=== PATIENT | male | born 1950 | race Caucasian/White ===

== ENCOUNTER 2017-01-12 20:25 | Emergency (ER) | payer MEDICARE, MEDICAID ==
[~2017-01-12] VITALS: Ht 167.6 cm; Wt 100.0 kg
[~2017-01-12 20:25] MED LIST: ASPIRIN CHEWABL81 MG PO; ATIVAN0.5 MG PO; B COMPLE1 PO; CELEXA20 M1 PO; CHROMIUM PICOLINATE PO; DOXYCYCL HYC100 MG PO; E 400 BLEND400 UNIT PO; FENOFIBRATE145 MG PO; FISH OIL OR; FISH OIL1000 M2 PO; GLIPIZIDE10 MG PO; GLIPIZIDE5 MG PO; HALOPERIDOL0.5 MG PO; JANUVIA100 MG PO; KEFLEX500 MG PO; LISINOP/HCTZ1 TAB PO; LYRICA50 MG PO; METFORMIN500 MG PO; METHADONE10 M1 PO; MIRTAZAPINE ODT15 MG PO; MORPHINE SULFAT30 M1 PO; MORPHINE SULFAT30 M2 PO; NEURONTIN400 MG PO; NEXIUM20 M1 PO; NOVOLIN 70/30 SC; OMEPRAZOLE20 MG PO; ORAMORPH SR15 MG PO; PENTOXIFYLLI400 M1 PO; PENTOXIFYLLI400 MG PO; PLAVIX75 MG PO; PRILOSEC40 MG PO; SIMVASTATIN40 MG OR; TENIVAC1 ML IM; TRESIBA FL100 UNIT/M SC; TRICOR145 MG PO; [UNRECOGNIZED DRUG - OTHER] OR
[2017-01-12 22:05] VITALS: BP 156/64
== END 2017-01-12 22:13 | disposition home or self-care (01) ==
LOC: ED 20:25
DX: I10 Essential (primary) hypertension (principal); I25.10 Atherosclerotic heart disease of native coronary artery without angina pectoris; E78.5 Hyperlipidemia, unspecified; G89.29 Other chronic pain; M54.5 Low back pain; E11.42 Type 2 diabetes mellitus with diabetic polyneuropathy; E11.51 Type 2 diabetes mellitus with diabetic peripheral angiopathy without gangrene; F32.9 Major depressive disorder, single episode, unspecified; F41.0 Panic disorder [episodic paroxysmal anxiety]; K21.9 Gastro-esophageal reflux disease without esophagitis; Z79.4 Long term (current) use of insulin

== ENCOUNTER 2017-02-07 17:50 | Emergency (ER) | payer MEDICARE, MEDICAID ==
[~2017-02-07] VITALS: Ht 167.6 cm; Wt 96.6 kg
[2017-02-07 19:35] VITALS: BP 130/63
== END 2017-02-07 19:35 | disposition home or self-care (01) ==
LOC: ED 17:50
DX: I10 Essential (primary) hypertension (principal)

== ENCOUNTER 2017-02-09 09:29 | Emergency (ER) | payer MEDICARE, MEDICAID | END 2017-02-09 10:00 | disposition left against medical advice (07) | LOC: ED 09:29 → LWOBS 10:00 | DX: Z91.19 Patient's noncompliance with other medical treatment and regimen (principal) ==

== ENCOUNTER 2017-02-26 13:51 | Emergency (ER) | payer MEDICARE, MEDICAID ==
[~2017-02-26] VITALS: Ht 167.6 cm; Wt 96.0 kg
[2017-02-26] MEDS ORDERED: LOSARTAN POTASS50 MG PO (14:03)
[2017-02-26] MEDS ORDERED: LASIX 40 MG40 MG/TAB PO (14:04)
[2017-02-26] MEDS ORDERED: TRULICITY0.75 MG/0. SC (14:10)
[2017-02-26 15:42] LABS: HEMATOCRIT 45.8 % (39.0-50.0); IMMATURE GRANULOCYTES 0.5 % (0.0-1.0); MEAN CELL VOLUME 95.6 fL CALC (80.0-100.0); MEAN CORPUSCULAR HGB 31.3 pG CALC (26.0-32.0); MEAN CORPUSCULAR HGB CONC 32.8 g/L CALC (32.0-36.0); NEUT# 8.39 thou/uL (1.82-7.42); RED BLOOD COUNT 4.79 mill/uL (4.70-6.10)
[2017-02-26 15:46] LABS: URINE BILIRUBIN - DIPSTICK NEGATIVE (NEGATIVE); URINE BLOOD DIPSTICK NEGATIVE (NEGATIVE); URINE CLARITY CLEAR; URINE COLOR YELLOW; URINE GLUCOSE - DIPSTICK >=1000 mg/dL (NEGATIVE); URINE KETONE NEGATIVE (NEGATIVE); URINE LEUK ESTERASE NEGATIVE (NEGATIVE); URINE NITRITE - DIPSTICK NEGATIVE (Negative); URINE PH 5.5 (4.5-8.0); URINE PROTEIN - DIPSTICK NEGATIVE (NEG-TRACE); URINE UROBILINOGEN - DIPSTICK 0.2 E.U./dL (0.2)
[2017-02-26 16:01] LABS: ALBUMIN 4.8 g/dL (3.2-5.0); ALKALINE PHOSPHATASE 114 u/l (38-126); ANION GAP 20 (6-22 (CALC)); BILIRUBIN, TOTAL 0.6 mg/dL (0.0-1.4); BUN 14 mg/dL (8-23); BUN/CREATININE RATIO 14 (12-20 (CALC)); CALCIUM 9.4 mg/dL (8.4-10.2); CARBON DIOXIDE 28 mmol/l (22-30); CHLORIDE 95 mmol/l (95-108); GFR > 60 ML/MIN (>=60 (CALC)); GFR FOR AFR.AMER. > 60 ML/MIN (>=60 (CALC)); GLUCOSE 317 mg/dL (82-115); POTASSIUM 4.4 mmol/l (3.5-5.1); SGOT/AST 25 u/l (19-48); SGPT/ALT 45 u/l (11-66); SODIUM 139 mmol/l (137-146); TOTAL PROTEIN 7.7 g/dL (6.3-8.2)
[2017-02-26 16:17] VITALS: BP 137/84
== END 2017-02-26 16:23 | disposition home or self-care (01) ==
LOC: ED 13:51
PROVIDERS: Emergency Medicine
DX: K59.00 Constipation, unspecified (principal); E11.42 Type 2 diabetes mellitus with diabetic polyneuropathy; I25.10 Atherosclerotic heart disease of native coronary artery without angina pectoris; E78.5 Hyperlipidemia, unspecified; I10 Essential (primary) hypertension; G89.29 Other chronic pain; M54.5 Low back pain; E11.51 Type 2 diabetes mellitus with diabetic peripheral angiopathy without gangrene; F32.9 Major depressive disorder, single episode, unspecified; K21.9 Gastro-esophageal reflux disease without esophagitis; F41.0 Panic disorder [episodic paroxysmal anxiety]

== ENCOUNTER 2017-03-23 03:34 | Emergency (ER) | payer MEDICARE, MEDICAID ==
[~2017-03-23] VITALS: Ht 167.6 cm; Wt 96.8 kg
[~2017-03-23 03:34] MED LIST changes: +LASIX 40 MG40 MG/TAB PO; +LOSARTAN POTASS50 MG PO; +TRULICITY0.75 MG/0. SC
[2017-03-23 05:20] VITALS: BP 112/60
== END 2017-03-23 05:20 | disposition home or self-care (01) ==
LOC: ED 03:34
DX: F41.9 Anxiety disorder, unspecified (principal); E11.42 Type 2 diabetes mellitus with diabetic polyneuropathy; E11.51 Type 2 diabetes mellitus with diabetic peripheral angiopathy without gangrene; I25.10 Atherosclerotic heart disease of native coronary artery without angina pectoris; E78.5 Hyperlipidemia, unspecified; G89.29 Other chronic pain; M54.5 Low back pain; K21.9 Gastro-esophageal reflux disease without esophagitis

== ENCOUNTER 2018-06-06 20:23 | Emergency (ER) | payer MEDICARE, MEDICAID ==
[~2018-06-06] VITALS: Ht 167.6 cm; Wt 78.0 kg
[2018-06-06 21:04] VITALS: BP 143/86
== END 2018-06-06 21:04 | disposition home or self-care (01) ==
LOC: ED 20:23
DX: R04.0 Epistaxis (principal); E78.5 Hyperlipidemia, unspecified; E11.51 Type 2 diabetes mellitus with diabetic peripheral angiopathy without gangrene; F41.9 Anxiety disorder, unspecified; F32.9 Major depressive disorder, single episode, unspecified

== ENCOUNTER → 2018-09-23 | Outpatient (REF) | payer MEDICARE, MEDICAID ==
[2018-09-23 07:47] LABS: HEMATOCRIT 43.5 % (39.0-50.0); HEMOGLOBIN 14.4 g/dl (14.0-18.0); IMMATURE GRANULOCYTES 0.2 % (0.0-5.0); MEAN CELL VOLUME 94.8 fL CALC (80.0-100.0); MEAN CORPUSCULAR HGB 31.4 pG CALC (26.0-32.0); MEAN CORPUSCULAR HGB CONC 33.1 g/L CALC (32.0-36.0); NEUT# 4.2 thou/uL (1.82-7.42); RED BLOOD COUNT 4.59 mill/uL (4.70-6.10); RED CELL DISTRI WIDTH 12.4 % (11.5-15.5)
[2018-09-23 07:53] LABS: ALBUMIN 4.6 g/dL (3.2-5.0); ALKALINE PHOSPHATASE 64 u/l (38-126); ANION GAP 13 (6-22 (CALC)); BILIRUBIN, TOTAL 0.7 mg/dL (0.0-1.4); BUN 21 mg/dL (8-23); BUN/CREATININE RATIO 17 (12-20 (CALC)); CARBON DIOXIDE 33 mmol/l (22-30); CHLORIDE 100 mmol/l (95-108); CREATININE 1.2 mg/dL (0.7-1.3); GFR 60 ML/MIN (>=60 (CALC)); GFR FOR AFR.AMER. > 60 ML/MIN (>=60 (CALC)); POTASSIUM 4.5 mmol/l (3.5-5.1); SGOT/AST 20 u/l (19-48); SODIUM 142 mmol/l (137-146); TOTAL PROTEIN 7.3 g/dL (6.3-8.2)
[2018-09-23 09:11] LABS: URINE BILIRUBIN - DIPSTICK NEGATIVE (NEGATIVE); URINE BLOOD DIPSTICK NEGATIVE (NEGATIVE); URINE COLOR YELLOW; URINE GLUCOSE - DIPSTICK NEGATIVE (NEGATIVE); URINE KETONE NEGATIVE (NEGATIVE); URINE LEUK ESTERASE NEGATIVE (Negative); URINE NITRITE - DIPSTICK NEGATIVE (Negative); URINE PH 5.5 (4.5-8.0); URINE PROTEIN - DIPSTICK NEGATIVE (NEG-TRACE); URINE SPECIFIC GRAVITY 1.025; URINE UROBILINOGEN - DIPSTICK 0.2 E.U./dL (0.2)
[2018-09-23 09:12] LABS: URINE CLARITY CLEAR
== END | disposition home or self-care (01) ==
LOC: LAB 06:43
PROVIDERS: ATTEND Family Medicine
DX: E11.9 Type 2 diabetes mellitus without complications (principal); I10 Essential (primary) hypertension

== ENCOUNTER 2018-12-07 17:29 | Emergency (ER) | payer MEDICARE, MEDICAID ==
[~2018-12-07] VITALS: Ht 167.6 cm; Wt 80.0 kg
[2018-12-07] MEDS ORDERED: FAMOTIDINE20 M1 PO (17:44)
[2018-12-07] MEDS ORDERED: CLONAZEPAM1 MG PO (17:49)
[2018-12-07] MEDS ORDERED: CLONIDINE0.1 MG PO (17:50)
[2018-12-07 18:13] LABS: HEMATOCRIT 44.1 % (39.0-50.0); HEMOGLOBIN 14.9 g/dl (14.0-18.0); IMMATURE GRANULOCYTES 0.2 % (0.0-5.0); MEAN CELL VOLUME 93.4 fL CALC (80.0-100.0); MEAN CORPUSCULAR HGB 31.6 pG CALC (26.0-32.0); MEAN CORPUSCULAR HGB CONC 33.8 g/L CALC (32.0-36.0); NEUT# 5.96 thou/uL (1.82-7.42); RED BLOOD COUNT 4.72 mill/uL (4.70-6.10); RED CELL DISTRI WIDTH 12.1 % (11.5-15.5)
[2018-12-07 18:29] LABS: ALKALINE PHOSPHATASE 82 u/l (38-126); ANION GAP 16 (6-22 (CALC)); BILIRUBIN, TOTAL 0.6 mg/dL (0.0-1.4); BUN 20 mg/dL (8-23); BUN/CREATININE RATIO 19 (12-20 (CALC)); CARBON DIOXIDE 28 mmol/l (22-30); CHLORIDE 102 mmol/l (95-108); CREATININE 1.1 mg/dL (0.7-1.3); GFR > 60 ML/MIN (>=60 (CALC)); GFR FOR AFR.AMER. > 60 ML/MIN (>=60 (CALC)); POTASSIUM 4.1 mmol/l (3.5-5.1); SGOT/AST 23 u/l (19-48); SODIUM 141 mmol/l (137-146)
[2018-12-07 18:41] LABS: MYOGLOBIN 50 ng/mL (0 - 121)
[2018-12-07 19:06] VITALS: BP 156/82
== END 2018-12-07 19:10 | disposition home or self-care (01) ==
LOC: ED 17:29
PROVIDERS: Emergency Medicine
DX: I10 Essential (primary) hypertension (principal); R00.2 Palpitations

== ENCOUNTER 2019-02-02 17:02 | Emergency (ER) | payer MEDICARE, MEDICAID ==
[~2019-02-02] VITALS: Ht 167.6 cm; Wt 77.3 kg
[~2019-02-02 17:02] MED LIST changes: +CLONAZEPAM1 MG PO; +CLONIDINE0.1 MG PO; +FAMOTIDINE20 M1 PO
[2019-02-02 18:35] LABS: HEMATOCRIT 41.5 % (39.0-50.0); HEMOGLOBIN 14.1 g/dl (14.0-18.0); IMMATURE GRANULOCYTES 0.4 % (0.0-5.0); MEAN CELL VOLUME 93.5 fL CALC (80.0-100.0); MEAN CORPUSCULAR HGB 31.8 pG CALC (26.0-32.0); NEUT# 5.96 thou/uL (1.82-7.42); RED BLOOD COUNT 4.44 mill/uL (4.70-6.10); RED CELL DISTRI WIDTH 12.7 % (11.5-15.5)
[2019-02-02] MEDS ORDERED: FIORICET PO (19:47)
[2019-02-02 20:27] VITALS: BP 136/60
== END 2019-02-02 20:27 | disposition home or self-care (01) ==
LOC: ED 17:02
PROVIDERS: Emergency Medicine
DX: R51 Headache (principal); T50.905A Adverse effect of unspecified drugs, medicaments and biological substances, initial encounter; G62.9 Polyneuropathy, unspecified; E11.9 Type 2 diabetes mellitus without complications

== ENCOUNTER 2020-08-23 06:39 | Day surgery (SDC) | payer MEDICARE, MEDICAID ==
[~2020-08-23] VITALS: Ht 167.6 cm; Wt 76.7 kg
[~2020-08-23 06:39] MED LIST changes: +CYMBALTA30 MG PO; +D3-5050000 UNIT PO; +FIORICET PO; +NOVOLIN 70/30 INNLT SC; +SONATA10 MG PO; +TOPIRAMATE25 MG PO; +TRULICITY0.75 MG/0.; +TRULICITY1.5 MG/0.5 SC; +VERAPAMIL120 M1 PO; +ZINC50 MG PO
[2020-08-23] MEDS ORDERED: PRAMIPEXOLE DI0.5 MG PO (08:07)
[2020-08-23] MEDS ORDERED: TRAZODONE50 MG PO (08:07)
[2020-08-23] MEDS ORDERED: FARXIGA5 MG (08:08)
[2020-08-23] MEDS ORDERED: PERCOCET 5/325M1 TAB PO (12:13)
[2020-08-23 12:28] VITALS: BP 118/56
== END 2020-08-23 13:13 | disposition home or self-care (01) ==
LOC: ORM 06:39
PROVIDERS: ATTEND Surgery
PROC: 0YU50JZ Supplement Right Inguinal Region with Synthetic Substitute, Open Approach (ICD-10-PCS; principal; 2020-08-23)
DX: K40.90 Unilateral inguinal hernia, without obstruction or gangrene, not specified as recurrent (principal); D17.6 Benign lipomatous neoplasm of spermatic cord; E11.40 Type 2 diabetes mellitus with diabetic neuropathy, unspecified; E11.51 Type 2 diabetes mellitus with diabetic peripheral angiopathy without gangrene; E11.22 Type 2 diabetes mellitus with diabetic chronic kidney disease; I12.9 Hypertensive chronic kidney disease with stage 1 through stage 4 chronic kidney disease, or unspecified chronic kidney disease; N18.9 Chronic kidney disease, unspecified; K21.9 Gastro-esophageal reflux disease without esophagitis; I71.4 Abdominal aortic aneurysm, without rupture; Z95.820 Peripheral vascular angioplasty status with implants and grafts; Z79.899 Other long term (current) drug therapy; Z20.822 Contact with and (suspected) exposure to COVID-19
CPT/HCPCS: C9290; J0131

== ENCOUNTER 2021-09-16 08:07 | Emergency (ER) | payer MEDICARE, MEDICAID ==
[~2021-09-16] VITALS: Ht 167.6 cm; Wt 80.9 kg
[~2021-09-16 08:07] MED LIST changes: +FARXIGA5 MG; +PERCOCET 5/325M1 TAB PO; +PRAMIPEXOLE DI0.5 MG PO; +TRAZODONE50 MG PO
[2021-09-16] MEDS ORDERED: KEFLEX500 MG PO (08:29)
[2021-09-16 09:10] VITALS: BP 134/84
== END 2021-09-16 09:11 | disposition home or self-care (01) ==
LOC: ED 08:07
DX: S51.812A Laceration without foreign body of left forearm, initial encounter (principal); E11.51 Type 2 diabetes mellitus with diabetic peripheral angiopathy without gangrene; E11.40 Type 2 diabetes mellitus with diabetic neuropathy, unspecified; E11.22 Type 2 diabetes mellitus with diabetic chronic kidney disease; I12.9 Hypertensive chronic kidney disease with stage 1 through stage 4 chronic kidney disease, or unspecified chronic kidney disease; N18.9 Chronic kidney disease, unspecified; I71.4 Abdominal aortic aneurysm, without rupture; W07.XXXA Fall from chair, initial encounter; Y92.009 Unspecified place in unspecified non-institutional (private) residence as the place of occurrence of the external cause; Z95.820 Peripheral vascular angioplasty status with implants and grafts; Z79.4 Long term (current) use of insulin

== ENCOUNTER 2024-02-11 07:54 | Inpatient (IN) | payer MEDICARE, MEDICAID ==
[~2024-02-11] VITALS: Ht 167.6 cm; Wt 71.7 kg
[2024-02-11] VITALS (21 sets, daily range): BP systolic 86–125; BP diastolic 36–73
[~2024-02-11 07:54] MED LIST changes: +CILOSTAZOL100 MG PO; +CRESTOR10 MG PO; +DOXYCYCLINE100 MG PO; +FLEXERIL5 M1 PO; +JARDIANCE25 MG PO; +KERENDIA20 MG PO; +LYRICA75 MG PO; +MUPIROCIN2 % EX; +PRAMIPEXOLE0.75 MG PO; +RYBELSUS7 MG PO
[2024-02-11] MEDS ORDERED: SODIUM CHLORIDE 0.9% 1,000 ML IV ONE ×2 (08:05→09:55)
[2024-02-11] MEDS ORDERED: ACETAMINOPHEN 500 MG TAB PO ONE (08:05)
[2024-02-11 08:32] LABS: BASO% 0.1 % (0-3); EOS% 0.1 % (0-8); HEMATOCRIT 45.3 % (39.0-50.0); HEMOGLOBIN 14.8 g/dl (14.0-18.0); IMMATURE GRANULOCYTES 0.4 % (0.0-5.0); LYMPH% 6.4 % (15-41); MEAN CELL VOLUME 96.8 fL CALC (80.0-100.0); MEAN CORPUSCULAR HGB 31.6 pG CALC (26.0-32.0); MEAN CORPUSCULAR HGB CONC 32.7 g/dL CAL (32.0-36.0); MONO% 3.3 % (2-13); NEUT# 19.98 thou/uL (1.82-7.42); NEUT% 89.7 % (42-76); RED BLOOD COUNT 4.68 mill/uL (4.70-6.10); RED CELL DISTRI WIDTH 13.2 % (11.5-15.5)
[2024-02-11] MEDS ORDERED: cefTRIAXone SODIUM 2 GM in SODIUM CHLORIDE 0.9% 100 ML IV ONE (08:45)
[2024-02-11 08:48] LABS: ALBUMIN 4.9 g/dL (3.2-5.0); ALKALINE PHOSPHATASE 68 u/l (38-126); ANION GAP 16 (6-22 (CALC)); BILIRUBIN, TOTAL 1.1 mg/dL (0.2-1.3); BUN 34 mg/dL (8-23); BUN/CREATININE RATIO 17 (12-20 (CALC)); CARBON DIOXIDE 18 mmol/l (22-30); CHLORIDE 112 mmol/l (95-108); CREATININE 1.9 mg/dL (0.7-1.3); ESTIMATED GFR 37 ML/MIN (>=90 (CALC)); POTASSIUM 4.2 mmol/l (3.5-5.1); SGOT/AST 23 u/l (19-48); SODIUM 142 mmol/l (137-146); TOTAL PROTEIN 7.9 g/dL (6.3-8.2)
[2024-02-11] MEDS ORDERED: AZITHROMYCIN 500 MG in SODIUM CHLORIDE 0.9% 250 ML IV ONE (09:00)
[2024-02-11 09:54] LABS: URINE BILIRUBIN - DIPSTICK Negative (NEGATIVE); URINE BLOOD DIPSTICK Negative (NEGATIVE); URINE GLUCOSE - DIPSTICK >=1000 mg/dL (NEGATIVE); URINE KETONE Negative (NEGATIVE); URINE LEUK ESTERASE Negative (NEGATIVE); URINE NITRITE - DIPSTICK Negative (Negative); URINE PH 5.5 (4.5-8.0); URINE PROTEIN - DIPSTICK Negative (NEG-TRACE); URINE SPECIFIC GRAVITY 1.015; URINE UROBILINOGEN - DIPSTICK 0.2 E.U./dL (0.2)
[2024-02-11 10:00] LABS: URINE COLOR Yellow
[2024-02-11] MEDS ORDERED: SODIUM CHLORIDE 0.9% 500 ML IV ONE (10:05)
[2024-02-11] MEDS ORDERED: SODIUM CHLORIDE 0.9% 1,000 ML IV PRN (10:30)
[2024-02-11] MEDS ORDERED: ACETAMINOPHEN 325 MG/TAB PO PRN (10:30)
[2024-02-11] MEDS ORDERED: MAGNESIUM HYDROXIDE 30 ML UDC PO PRN (10:30)
[2024-02-11] MEDS ORDERED: TRAZODONE50 MG PO (10:48)
[2024-02-11] MEDS ORDERED: RYBELSUS7 MG PO (10:48)
[2024-02-11] MEDS ORDERED: TOPAMAX25 MG PO (10:48)
[2024-02-11] MEDS ORDERED: MELOXICAM15 MG PO (10:49)
[2024-02-11] MEDS ORDERED: VERAPAMIL HCL120 M2 PO (10:49)
[2024-02-11] MEDS ORDERED: DEXTROSE 250 ML IV PRN (12:30)
[2024-02-11] MEDS ORDERED: BUMETANIDE1 MG PO (12:31)
[2024-02-11] MEDS ORDERED: VERAPAMIL HCL240 MG PO (12:52)
[2024-02-11] MEDS ORDERED: FARXIGA10 MG PO (12:55)
[2024-02-11] MEDS ORDERED: INSULIN LISPRO 100 UNITS/ML ML SC SCH (17:00)
[2024-02-11] MEDS ORDERED: traZODone HCL 50 MG/TAB PO SCH (21:00)
[2024-02-12] VITALS (8 sets, daily range): BP systolic 105–155; BP diastolic 45–85
[2024-02-12] MEDS ORDERED: CLOPIDOGREL BISULFATE 75 MG/TAB TAB PO SCH (09:00)
[2024-02-12] MEDS ORDERED: VERAPAMIL HCL ER 120 MG/CAP PO SCH (09:00)
[2024-02-12 09:54] LABS: BASO% 0.2 % (0-3); EOS% 0.8 % (0-8); HEMATOCRIT 39.5 % (39.0-50.0); HEMOGLOBIN 12.9 g/dl (14.0-18.0); IMMATURE GRANULOCYTES 0.3 % (0.0-5.0); LYMPH% 9.4 % (15-41); MEAN CELL VOLUME 97.3 fL CALC (80.0-100.0); MEAN CORPUSCULAR HGB 31.8 pG CALC (26.0-32.0); MEAN CORPUSCULAR HGB CONC 32.7 g/dL CAL (32.0-36.0); MONO% 4.9 % (2-13); NEUT# 9.52 thou/uL (1.82-7.42); NEUT% 84.4 % (42-76); RED BLOOD COUNT 4.06 mill/uL (4.70-6.10); RED CELL DISTRI WIDTH 13.5 % (11.5-15.5)
[2024-02-12] MEDS ORDERED: VANCOMYCIN HCL 1 GM in SODIUM CHLORIDE 0.9% 250 ML IV SCH (10:00)
[2024-02-12] MEDS ORDERED: AZITHROMYCIN 500 MG in SODIUM CHLORIDE 0.9% 250 ML IV SCH (10:00)
[2024-02-12 10:05] LABS: BILIRUBIN, TOTAL 0.8 mg/dL (0.2-1.3); CREATININE 1.4 mg/dL (0.7-1.3); MAGNESIUM 1.7 mg/dL (1.6-2.3); POTASSIUM 4.3 mmol/l (3.5-5.1); TOTAL PROTEIN 5.7 g/dL (6.3-8.2)
[2024-02-12 10:06] LABS: ALBUMIN 3.3 g/dL (3.2-5.0)
[2024-02-13] VITALS (9 sets, daily range): BP systolic 116–137; BP diastolic 64–81
[2024-02-13 05:47] LABS: BASO% 0.2 % (0-3); EOS% 2.5 % (0-8); HEMATOCRIT 43.4 % (39.0-50.0); HEMOGLOBIN 14.3 g/dl (14.0-18.0); IMMATURE GRANULOCYTES 0.4 % (0.0-5.0); LYMPH% 13.3 % (15-41); MEAN CELL VOLUME 96.2 fL CALC (80.0-100.0); MEAN CORPUSCULAR HGB 31.7 pG CALC (26.0-32.0); MEAN CORPUSCULAR HGB CONC 32.9 g/dL CAL (32.0-36.0); MONO% 7.3 % (2-13); NEUT% 76.3 % (42-76); RED BLOOD COUNT 4.51 mill/uL (4.70-6.10); RED CELL DISTRI WIDTH 13.2 % (11.5-15.5)
[2024-02-13 06:06] LABS: ALBUMIN 3.1 g/dL (3.2-5.0); BILIRUBIN, TOTAL 0.6 mg/dL (0.2-1.3); CREATININE 1.2 mg/dL (0.7-1.3); MAGNESIUM 1.8 mg/dL (1.6-2.3); POTASSIUM 3.7 mmol/l (3.5-5.1); TOTAL PROTEIN 5.5 g/dL (6.3-8.2)
[2024-02-13] MEDS ORDERED: cefTRIAXone SODIUM 2 GM in SODIUM CHLORIDE 0.9% 100 ML IV SCH (09:00)
[2024-02-14 00:05] VITALS: BP 126/64
[2024-02-14 04:20] VITALS: BP 136/75
[2024-02-14 05:00] VITALS: BP 136/75
[2024-02-14 05:17] LABS: BASO% 0.1 % (0-3); EOS% 3.7 % (0-8); HEMATOCRIT 39.2 % (39.0-50.0); HEMOGLOBIN 13.1 g/dl (14.0-18.0); IMMATURE GRANULOCYTES 0.5 % (0.0-5.0); LYMPH% 19.9 % (15-41); MEAN CELL VOLUME 96.8 fL CALC (80.0-100.0); MEAN CORPUSCULAR HGB 32.3 pG CALC (26.0-32.0); MEAN CORPUSCULAR HGB CONC 33.4 g/dL CAL (32.0-36.0); MONO% 8.9 % (2-13); NEUT# 5.02 thou/uL (1.82-7.42); NEUT% 66.9 % (42-76); RED BLOOD COUNT 4.05 mill/uL (4.70-6.10); RED CELL DISTRI WIDTH 13.3 % (11.5-15.5)
[2024-02-14 05:39] LABS: BILIRUBIN, TOTAL 0.5 mg/dL (0.2-1.3); CREATININE 1.1 mg/dL (0.7-1.3); MAGNESIUM 1.9 mg/dL (1.6-2.3); POTASSIUM 3.8 mmol/l (3.5-5.1); TOTAL PROTEIN 5.3 g/dL (6.3-8.2)
[2024-02-14 08:10] VITALS: BP 148/87
[2024-02-14] MEDS ORDERED: CEFTRIAXONE2 GM IV (10:29)
[2024-02-14 11:30] VITALS: BP 131/71
== END 2024-02-14 16:48 | disposition home health service (06) | DRG 872 ==
LOC: ED 07:54 → ED-I 08:40 → ED 10:27 → MS2 10:28
PROVIDERS: Family Medicine; Nurse Practitioner Family; ADMIT Internal Medicine; ATTEND Internal Medicine
DX: A40.1 Sepsis due to streptococcus, group B (principal); N17.9 Acute kidney failure, unspecified; R65.20 Severe sepsis without septic shock; I95.9 Hypotension, unspecified; E11.22 Type 2 diabetes mellitus with diabetic chronic kidney disease; I12.9 Hypertensive chronic kidney disease with stage 1 through stage 4 chronic kidney disease, or unspecified chronic kidney disease; N18.30 Chronic kidney disease, stage 3 unspecified; E78.5 Hyperlipidemia, unspecified; E11.40 Type 2 diabetes mellitus with diabetic neuropathy, unspecified; E11.51 Type 2 diabetes mellitus with diabetic peripheral angiopathy without gangrene; E21.3 Hyperparathyroidism, unspecified; I71.20 Thoracic aortic aneurysm, without rupture, unspecified; S80.212A Abrasion, left knee, initial encounter; X58.XXXA Exposure to other specified factors, initial encounter; Z95.820 Peripheral vascular angioplasty status with implants and grafts; Z20.822 Contact with and (suspected) exposure to COVID-19; Z79.02 Long term (current) use of antithrombotics/antiplatelets
CPT/HCPCS: Q9967